=== PATIENT | male | born 1940 | race Caucasian/White ===

== ENCOUNTER 2016-06-19 13:00 | Inpatient (IN) | payer MEDICARE, BC ==
[~2016-06-19] VITALS: Ht 171.4 cm; Wt 89.6 kg
--- NOTE | ~2016-06-19 | HP ---
PATIENT'S NAME: LIZET ESQUIVEL [facility] AGE: 76 Y [address] ROOM: [place] [address] LOCATION: [facility] ADMIT DATE: 07/03/2016 History & Physical DISCHARGE DATE: FAMILY PHYSICIAN: See Jimenes MD ATTENDING PHYSICIAN: KERWIN MAE DATE OF SERVICE: ADDENDUM: MEDICATIONS: 1. Cozaar 100 daily. 2. Toprol-XL 25 mg Extended Release 1 daily. 3. Gemfibrozil 600 mg twice a day. 4. Metformin 500 mg twice a day. 5. Claritin 10 mg a day. 6. Aspirin 325 a day. 7. Neurontin 300 mg 2 tablets 3 times a day. ALLERGIES: SULFA. PREVIOUS OPERATIONS: Status post colonoscopy for tubular adenoma, status post left rotator cuff 2007, status post right rotator cuff 2010, status post TURP. SOCIAL HISTORY: Smoker when he was younger, no smoking for years, does not drink alcohol. FAMILY HISTORY: No family history of problems with bleeding disorder or general anesthesia. REVIEW OF SYSTEMS: Positive for allergic rhinitis, hyperlipidemia, hypertension, essential, allergy to sulfa, and diabetes mellitus, type 2. PHYSICAL EXAMINATION: VITAL SIGNS: Per nurse's notes. GENERAL: He is alert, sitting in chair, in no apparent distress. HEENT: Shows pupils react to light. TMs not visualized. Posterior pharynx is clear. NECK: Unremarkable. Thyroid not enlarged. LUNGS: Clear without wheeze or rub. HEART: Shows no murmur, gallop, or rub. ABDOMEN: Soft. PATIENT'S NAME: LIZET ESQUIVEL [facility] AGE: 76 Y [address] ROOM: [place] [address] LOCATION: [facility] ADMIT DATE: 07/03/2016 History & Physical DISCHARGE DATE: FAMILY PHYSICIAN: See Jimenes MD ATTENDING PHYSICIAN: KERWIN MAE EXTREMITIES: Dressing over his left knee noted. Pulses full throughout. NEUROLOGIC: Grossly intact. No lateralizing signs. ASSESSMENT: 1. End-stage degenerative joint disease, left knee. 2. Status post successful left total knee arthroplasty. 3. Diabetes mellitus, type 2. 4. Hypertension, essential. 5. Hyperlipidemia. 6. Allergic rhinitis. 7. Allergy to sulfa. PLAN: Follow daily. MD JAIDEN HUSSEIN/jose rafael /[id number] D: [id number] T: [id number] HISTORY & PHYSICAL
--- NOTE | ~2016-06-19 | HP ---
PATIENT'S NAME: LIZET ESQUIVEL [facility] AGE: 76 Y [address] ROOM: [address] [address] LOCATION: [facility] ADMIT DATE: 07/03/2016 History & Physical DISCHARGE DATE: FAMILY PHYSICIAN: See Jimenes MD ATTENDING PHYSICIAN: ANTONI MAE DATE OF SERVICE: CHIEF COMPLAINT: Left knee pain. HISTORY OF PRESENT ILLNESS: The patient is a 76-year-old white male who was admitted to the care of Dr. Antoni Mae with a diagnosis of end-stage DJD today. The patient has undergone a successful uncomplicated left total knee arthroplasty. When I see him, I have been asked to see him postop for pain management, his history of diabetes mellitus type 2, and hypertension. He is resting quietly when I see him, he has no complaints, says his pain is adequately controlled, and he has had no nausea. MEDICATIONS: 1. Flonase nasal spray as needed. 2. Atorvastatin 40 mg a day. 3. Cozaar 100 mg a day. MD JAIDEN HUSSEIN/jose rafael /[id number] D: T: HISTORY & PHYSICAL
--- NOTE | ~2016-06-19 | OR ---
PATIENT'S NAME: LIZET ESQUIVEL [facility] AGE: 76 Y [address] ROOM: [place] [address] LOCATION: [facility] ADMIT DATE: 07/03/2016 OR/Procedure Report DISCHARGE DATE: FAMILY PHYSICIAN: See Jimenes MD ATTENDING PHYSICIAN: ANTONI SANTANA SURGEON: Antoni Santana DO BREAKER MACHINE OPERATOR: DATE OF PROCEDURE: 07/03/2016 PREOPERATIVE DIAGNOSIS: Left knee degenerative arthritis. POSTOPERATIVE DIAGNOSIS: Left knee degenerative arthritis. OPERATION PERFORMED: Left total knee arthroplasty, (cemented tibia and femur) using medial parapatellar/subvastus approach. CLAIM MANAGER: TAYLOR Smith present during entire case, instrumental for patient positioning, increased visibility, retractor holding, as well as wound closure, dressing placement and transport from OR table. TOURNIQUET TIME: 37 minutes. ANESTHESIA: Spinal with preop adductor canal block by Anesthesia. HARDWARE: Rosaline Persona Knee System. Patient's specific implants.Femur size 9, tibia size G, (cemented). Patelloplasty was performed and not resurfaced. Polyethylene size 10 mm medial congruent. COMPLICATIONS: None. ANTIBIOTICS: Given. TIMEOUT: Performed. 1 gram IV tranexamic acid given on incision, second gram topically at closure. SPECIMENS: None. ESTIMATED BLOOD LOSS: Less than 50 mL. FLUID ADMINISTERED: See Anesthesia. HISTORY: This is a pleasant 76-year-old, has persistent knee pain, has failed conservative therapy including physical therapy, braces, and injections. The PATIENT'S NAME: LIZET ESQUIVEL [facility] AGE: 76 Y [address] ROOM: [place] [address] LOCATION: [facility] ADMIT DATE: 07/03/2016 OR/Procedure Report DISCHARGE DATE: FAMILY PHYSICIAN: See Jimenes MD ATTENDING PHYSICIAN: ANTONI SANTANA patient continues to suffer pain and fails activities of daily living. It is limiting quality of life and ADLs. We had a discussion regarding further treatment options as the patient has failed all conservative care. The patient wished to proceed with total knee arthroplasty. The risks, benefits, goals and potential complications were discussed. The patient had been through the total joint course and reviewed our online resources in [facility] and then given written handout with the explanations, risks, benefits, and potential treatment complications. Consent signed on the chart. The patient understands the risk of implant recalls; potential for infection up to 2% including deep infection, this could result in multiple surgeries of explant antibiotic spacers and third surgery. The patient understands the risk of fractures; neurovascular injury; damage to arteries, nerves, muscles, tendons; loss of motion; pain; potential to develop a DVT, which could lead to pulmonary embolus and even . The patient has been well informed of the treatment options, risks, benefits, and chance of complications. The patient elects to proceed. DESCRIPTION OF PROCEDURE: The patient was brought back to the operating room theater under anesthesia. The patient was prepped and draped in the usual sterile fashion with the leg exsanguinated and tourniquet inflated. A midline incision starting from the medial aspect of the tibial tubercle approximately 3 fingerbreadths above the superior pole of the patella. Medial parapatellar arthrotomy with subvastus approach exposed the deep capsule. The deep medial capsule was elevated off the medial side of the tibia based on whether they are varus or valgus. Fat pad removed with careful attention not to injure the patellar tendon and the anterior horns of the medial and lateral meniscus were removed. ACL was sacrificed and a retractor was placed protecting the medial and lateral collateral ligaments. The distal cutting block put in position. Appropriate resection taken off the distal femur. After confirmed positioning, slope, proximal tibia resected. Careful attention protecting the collateral ligaments, patellar tendon with bicondylar smooth and dual PCL retractor placed to protect the posterior structures. We then placed a spacer block to confirm adequate bony resections with extension gap. Medial and lateral compartments were cleaned out of any meniscus and soft tissue protecting the collaterals, popliteus, and posterior structures. The anterior and posterior chamfer cuts were made confirming no notching anteriorly. Bony osteophytes removed. A trial femur was placed and using a poly, I floated the tibia confirming intact collateral ligaments and good balancing. If any further releases were needed, those were performed. I confirmed there were no posterior osteophytes of the distal femur, floating technique, I marked the position of the tibia. Final preparation of the femur with lug holes drilled. I then removed the trial femur, placed the tibia, and confirmed axial alignment with PSI and the floating technique. Once satisfied, the trial tibial plate was locked into place confirming with drop paras appropriate alignment and slope. The final tibia was drilled and cruciate punch performed. PATIENT'S NAME: LIZET ESQUIVEL [facility] AGE: 76 Y [address] ROOM: [address] [place], [place] [address] LOCATION: [facility] ADMIT DATE: 07/03/2016 OR/Procedure Report DISCHARGE DATE: FAMILY PHYSICIAN: See Jimenes MD ATTENDING PHYSICIAN: ANTONI SANTANA With the trials in place, went through range of motion, confirming excellent stability with varus/valgus stress and good stability at 0, 30, and 90 degrees of motion. I confirmed the patella was well tracking after osteophytes removed. A patelloplasty was performed with no resurfacing. All trials were then removed. The bone was pulsatiled to clean and dry surface. Exparel cocktail using multiple stabs with careful aspiration not to inject intravascularly, staying away from the lateral compartment as to not cause foot drop. The tibia was placed followed by femur, held in full extension with trial poly. Excess cement removed. Reconfirmed stability with trial poly. If PCL well functioning, I used a high flex medial congruent; if PCL at risk for deficiency, a deep-dish polyethylene used. Once the trial poly was removed, confirmed all cement was hardened and excess cement removed. Range of motion confirmed again prior to final poly being locked into place. Aquamantys was used to establish hemostasis with tourniquet deployed. Final poly locked into place. Hemostasis achieved. Wound closure involved #2 Vicryl in a figure-of- eight pattern along the capsulotomy followed by #2 Quill, Monocryl in a simple buried pattern followed by V-Loc Dermabond. Once the Dermabond cured, the staff placed a Mepilex dressing followed by pulling the thigh-high RENATE hose over the wound and insulating the skin to prevent soft tissue cold injury from the [employer]. Please note that SCDs and RENATE hose started preop in the recovery room, continued on the nonoperative site to prevent DVT. Sponge and needle counts were reported correct x3. The patient will be followed by hospitalist, allowed to weight bear as tolerated, with encouraged physical therapy. On the day of surgery, continue prophylactic antibiotics for the first 24 hours. Continue DVT prophylaxis with SCDs, foot pumps, and RENATE hose. Unless contraindicated, they will start full-strength aspirin within 23 hours and continue for a month. My PA was present during the entire case there to help assist with placement on the table, prep draping, hold retractors to increase visibility. He also assisted in closure of the subcutaneous tissue and skin. He also helped moving the patient from the operating table to the bed as well as placement of dressings. ANTONI SANTANA DO PH/modl /[id number] d: 07/03/16 2352 t: 07/23/16 1733, OPERATIVE SUMMARY
--- NOTE | ~2016-06-19 | DS ---
PATIENT'S NAME: LIZET ESQUIVEL [facility] AGE: 76 Y [address] ROOM: [address] [address] LOCATION: [facility] ADMIT DATE: 07/03/2016 Discharge Summary DISCHARGE DATE: 07/06/2016 FAMILY PHYSICIAN: See Jimenes MD ATTENDING PHYSICIAN: Antoni Santana ADMISSION DIAGNOSIS: Left knee degenerative joint disease. DISCHARGE DIAGNOSIS: Status post left total knee arthroplasty. HISTORY OF PRESENT ILLNESS: The patient is a pleasant 76-year-old male, who was seen in our office for ongoing left knee pain x12 years. The patient reported that his quality of life and activities of daily living in negative manner due to left knee pain. He had failed conservative therapy with the use of antiinflammatories, cortisone injections, and therapy. The patient was discussed further treatment options including total knee arthroplasty. Risks and benefits of the surgery discussed with him in detail today in the office including infection up to 2%; DVT; pulmonary embolism; need for further surgery; damage to nerves, arteries, veins, ligaments, tendons; and even . The patient understood his risk and wished to proceed for being scheduled for a left total knee arthroplasty by Dr. Santana. The patient had preoperative physical done by his primary care provider within 30 days of surgery. HOSPITAL COURSE: The patient was admitted to the hospital on 07/03/2016 to undergo a left total knee arthroplasty by Dr. aSntana. Risks and benefits were discussed with the patient by Dr. Santana and consent was obtained. The patient was taken back to the OR and had a left total knee arthroplasty performed without complications. The patient tolerated the procedure well. The patient was taken to recovery in the [address] [place] [address] for followup care. The patient did attend joint class while in the hospital and did well. The patient stayed for 3 days as he wanted to go to [facility] following a stay at the hospital. The patient did have some difficulty with pain medication initially, which caused nausea, vomiting, and altered mental status. The patient was taken off all narcotics and placed on tramadol. The patient did well on tramadol alone. The patient was in stable condition when transferred to [facility]. DISCHARGE MEDICATIONS: Reviewed. ALLERGIES TO MEDICATIONS: Reviewed. NEW MEDICATIONS: Reviewed. DISCHARGE INSTRUCTIONS: PATIENT'S NAME: LIZET ESQUIVEL [facility] AGE: 76 Y [address] ROOM: [address] [address] LOCATION: [facility] ADMIT DATE: 07/03/2016 Discharge Summary DISCHARGE DATE: 07/06/2016 FAMILY PHYSICIAN: See Jimenes MD ATTENDING PHYSICIAN: Antoni Sanatna 1. Weightbearing status. Weightbearing as tolerated. Use a walker as needed. 2. Dressing instructions. Mepilex dressing cover when showering. Avoid hot tubs, swimming pools, bathtubs, and lakes. 3. Physical therapy. Will attend 3 times per week. DISCHARGE DISPOSITION: Swing Bed in stable condition. RENE GARCIA PA-C FOR ANTONI SANTANA DO GRT/modl /[id number] d: t: 07/19/16 0932, DISCHARGE SUMMARY
[2016-06-20] MEDS ORDERED: NEURONTIN300 MG PO (10:19)
[2016-06-20] MEDS ORDERED: LOPID600 M1 PO (10:20)
[2016-06-20] MEDS ORDERED: CLARITIN10 M2 PO (10:20)
[2016-06-20] MEDS ORDERED: GLUCOPHAGE500 MG PO (10:20)
[2016-06-20] MEDS ORDERED: TOPROL XL25 MG PO (10:21)
[2016-06-20] MEDS ORDERED: COZAAR100 MG PO (10:21)
[2016-06-20] MEDS ORDERED: JUICE PLUS PO (10:21)
[2016-06-20] MEDS ORDERED: LIPITOR40 MG PO (10:23)
[2016-06-20] MEDS ORDERED: ASPIRIN325 MG PO (10:23)
[2016-06-20] MEDS ORDERED: EYE VITAMIN-MI1 EACH PO (10:23)
[2016-06-20] MEDS ORDERED: ALEVE220 MG PO (10:24)
[2016-06-20] MEDS ORDERED: FLONASE 50 MCG/16 GM NOSE (10:25)
[2016-07-03] MEDS ORDERED: TYLENOL EXTRA500 MG PO (07:32)
[2016-07-04 05:55] LABS: HEMATOCRIT 33.7 % (37.0-53.0); HEMOGLOBIN 11.5 g/dL (11.0-16.0)
== END 2016-07-06 09:00 | disposition swing bed (61) | DRG 470 ==
LOC: G3N 07-03 06:54
PROVIDERS: ADMIT Orthopaedic Surgery
PROC: 0SRD0J9 Replacement of Left Knee Joint with Synthetic Substitute, Cemented, Open Approach (ICD-10-PCS; principal; 2016-07-03)
DX: M17.12 Unilateral primary osteoarthritis, left knee (principal); E11.9 Type 2 diabetes mellitus without complications; E78.5 Hyperlipidemia, unspecified; J30.9 Allergic rhinitis, unspecified; Z79.84 Long term (current) use of oral hypoglycemic drugs; Z79.82 Long term (current) use of aspirin; Z87.891 Personal history of nicotine dependence; Z88.2 Allergy status to sulfonamides
CPT/HCPCS: C1713; C1776; J0171; J0690; J0735; J1170; J1885; J2001; J2250; J2405; J2795; J7030; J7040; J7120

== ENCOUNTER → 2016-06-21 | Outpatient (CLI) | payer MEDICARE, BC ==
[~2016-06-21] MED LIST: ALEVE220 MG PO; ASPIRIN325 MG PO; CLARITIN10 M2 PO; COZAAR100 MG PO; EYE VITAMIN-MI1 EACH PO; FLONASE 50 MCG/16 GM NOSE; GLUCOPHAGE500 MG PO; JUICE PLUS PO; LIPITOR40 MG PO; LOPID600 M1 PO; NEURONTIN300 MG PO; TOPROL XL25 MG PO; TYLENOL EXTRA500 MG PO
== END | disposition disaster alternative care site (69) ==
LOC: GNJRC 09:38
DX: Z01.818 Encounter for other preprocedural examination (principal); M17.12 Unilateral primary osteoarthritis, left knee